=== PATIENT | male | born 1945 | race Asian ===

== ENCOUNTER → 2016-10-20 | Outpatient (CLI) | payer MEDICARE, OTHER ==
[~2016-10-20] MED LIST: AMLO-512 PO; CARV6 PO; CEPH250 PO; DIGO125T PO; ENAL5TAB PO; FURO20 PO; LISI-660 PO; MECL-111 PO; POTA8TAB4 PO; WARF2 PO
[2016-10-20 12:56] LABS: BASOPHILS # (AUTO) 0.04 K/uL (0.00-0.20); BASOPHILS % (AUTO) 0.5 % (0.0-2.0); EOSINOPHILS # (AUTO) 0.11 K/uL (0.00-0.70); EOSINOPHILS % (AUTO) 1.44 % (1.0-6.0); HEMOGLOBIN 14.4 g/dL (13.5-17.5); LYMPHOCYTES # (AUTO) 1.6 K/uL (1.0-4.8); LYMPHOCYTES % (AUTO) 20.1 % (22.0-44.0); MEAN CORPUSCULAR HEMOGLOBIN 29.7 pg (26.0-34.0); MEAN CORPUSCULAR HGB CONC 32.8 G/dL (31.0-37.0); MEAN CORPUSCULAR VOLUME 90 fL (80-100); MONOCYTES # (AUTO) 0.6 K/uL (0.1-1.0); MONOCYTES % (AUTO) 8.1 % (2.0-9.0); NEUTROPHILS # (AUTO) 5.4 K/uL (1.8-7.7); NEUTROPHILS % (AUTO) 69.9 % (40.0-70.0); PLATELET COUNT (AUTO) 190 K/uL (150-450); RED BLOOD CELL COUNT(AUTO) 4.87 MIL/uL (4.50-5.90); WHITE BLOOD COUNT (AUTO) 7.8 K/uL (4.5-11.0)
[2016-10-20 13:27] LABS: ALBUMIN 3.9 g/dL (3.4-5.0); CALCIUM, TOTAL 8.9 mg/dL (8.8-10.5); CHOL/HDL RATIO 2.1 (4.2-7.3); CREATININE 1.38 mg/dL (0.60-1.30); MAGNESIUM 2.3 mg/dL (1.80-2.40); POTASSIUM 4.5 mmol/L (3.5-5.1); THYROID STIMULATING HORMONE 1.54 uIU/mL (0.36-3.74); TOTAL PROTEIN, SERUM 7.7 g/dL (6.4-8.2)
[2016-10-20 13:32] LABS: HEMOGLOBIN A1C 6.1 % (4.5-6.2)
== END | disposition home or self-care (01) ==
LOC: LABPV 10:52
PROVIDERS: ATTEND Internal Medicine Cardiovascular Disease
DX: I11.0 Hypertensive heart disease with heart failure (principal); I50.9 Heart failure, unspecified; E11.8 Type 2 diabetes mellitus with unspecified complications; E55.9 Vitamin D deficiency, unspecified
CPT/HCPCS: 82306; 83036; 83735; 84439; 84443

== ENCOUNTER → 2017-01-20 | Outpatient (CLI) | payer MEDICARE, OTHER ==
[~2017-01-20] VITALS: Ht 170.2 cm; Wt 55.0 kg
[2017-01-20 10:19] VITALS: BP 133/55
== END | disposition home or self-care (01) ==
LOC: SRCNTR 10:14
PROVIDERS: ATTEND Internal Medicine Clinical Cardiac Electrophysiology
DX: Z45.02 Encounter for adjustment and management of automatic implantable cardiac defibrillator (principal); I11.0 Hypertensive heart disease with heart failure; I50.9 Heart failure, unspecified; J44.9 Chronic obstructive pulmonary disease, unspecified; E78.5 Hyperlipidemia, unspecified; Z79.01 Long term (current) use of anticoagulants; Z87.891 Personal history of nicotine dependence
CPT/HCPCS: G0463

== ENCOUNTER → 2017-09-23 | Outpatient (CLI) | payer MEDICARE, OTHER ==
[~2017-09-23] MED LIST changes: -AMLO-512 PO; -CEPH250 PO; -DIGO125T PO; -ENAL5TAB PO; -MECL-111 PO
[2017-09-23 09:59] LABS: BASOPHILS % (AUTO) 0.6 % (0.0-2.0); EOSINOPHILS % (AUTO) 2.5 % (1.0-6.0); HEMATOCRIT 43.3 % (41-53); HEMOGLOBIN 14.4 g/dL (13.5-17.5); LYMPHOCYTES # (AUTO) 1.4 K/uL (1.0-4.8); LYMPHOCYTES % (AUTO) 19.3 % (22.0-44.0); MEAN CORPUSCULAR HEMOGLOBIN 30.6 pg (26.0-34.0); MEAN CORPUSCULAR HGB CONC 33.2 G/dL (31.0-37.0); MEAN CORPUSCULAR VOLUME 92 fL (80-100); MONOCYTES # (AUTO) 0.7 K/uL (0.1-1.0); MONOCYTES % (AUTO) 10.6 % (2.0-9.0); NEUTROPHILS # (AUTO) 4.7 K/uL (1.8-7.7); PLATELET COUNT (AUTO) 166 K/uL (150-450); RED BLOOD CELL COUNT(AUTO) 4.71 MIL/uL (4.50-5.90); RED CELL DISTRIBUTION WIDTH 14.4 % (11.5-14.5)
[2017-09-23 10:15] LABS: HEMOGLOBIN A1C 6.1 % (4.5-6.2)
[2017-09-23 10:22] LABS: ALBUMIN 3.7 g/dL (3.4-5.0); BILIRUBIN,TOTAL 0.9 mg/dL (0.1-1.0); CALCIUM, TOTAL 8.6 mg/dL (8.8-10.5); CHOL/HDL RATIO 2.6 (4.2-7.3); CREATININE 1.24 mg/dL (0.60-1.30); MAGNESIUM 1.9 mg/dL (1.80-2.40); POTASSIUM 4.2 mmol/L (3.5-5.1); THYROID STIMULATING HORMONE 1.59 uIU/mL (0.36-3.74); TOTAL PROTEIN, SERUM 7.2 g/dL (6.4-8.2)
== END | disposition home or self-care (01) ==
LOC: LABPV 08:33
PROVIDERS: ATTEND Internal Medicine Cardiovascular Disease
DX: I11.0 Hypertensive heart disease with heart failure (principal); I50.9 Heart failure, unspecified; E11.8 Type 2 diabetes mellitus with unspecified complications; E55.9 Vitamin D deficiency, unspecified
CPT/HCPCS: 82306; 83036; 83735; 84439; 84443

== ENCOUNTER → 2018-01-22 | Outpatient (CLI) | payer MEDICARE, OTHER ==
[2018-01-22 11:30] LABS: INR 2.7 (0.9-1.1); PROTHROMBIN TIME 27.5 SEC (9.4-11.6)
== END | disposition home or self-care (01) ==
LOC: LABPV 10:11
PROVIDERS: ATTEND Internal Medicine Cardiovascular Disease
DX: I11.0 Hypertensive heart disease with heart failure (principal); I50.9 Heart failure, unspecified

== ENCOUNTER 2019-04-29 21:20 | Emergency (ER) | payer MEDICARE, OTHER ==
[~2019-04-29] VITALS: Ht 162.6 cm; Wt 54.0 kg
[~2019-04-29 21:20] MED LIST changes: +NALOXONE HCL 1 MG/ML 2 ML SYG IM ONE
[2019-04-29] MEDS ORDERED: SUCCINYLCHOLINE CHLORIDE 20 MG/ML 10 ML VIAL IVP ONE ×2 (21:22→22:30)
[2019-04-29] MEDS ORDERED: ETOMIDATE 2 MG/ML 10 ML VIAL IVP ONE ×2 (21:22→22:30)
[2019-04-29] MEDS ORDERED: NALOXONE HCL 1 MG/ML 2 ML SYG ONE (21:22)
[2019-04-29] MEDS ORDERED: NALOXONE HCL 1 MG/ML 2 ML SYG IVP ONE (21:30)
[2019-04-29] MEDS ORDERED: ALBUTEROL SULFATE 5 MG/ML 20 ML NEB SOLN [BULK] NEB ONE ×3 (22:15→23:45)
[2019-04-29] MEDS ORDERED: SODIUM CHLORIDE 0.9% 1,000 ML IV ONE (22:15)
[2019-04-29] MEDS ORDERED: IPRATROPIUM BROMIDE 0.5 MG/2.5 ML NEB SOLUTION NEB ONE ×3 (22:15→23:45)
[2019-04-29] MEDS ORDERED: 0.9% SODIUM CHLORIDE 5 ML NEB SOLUTION NEB ONE ×3 (22:17→23:37)
[2019-04-29] MEDS ORDERED: PHENYLEPHRINE 200 MG/D5%-WATER 250 ML IV PRN (22:25)
[2019-04-29 22:27] LABS: APPEARANCE,URINE CLOUDY (CLEAR); BILIRUBIN,URINE NEGATIVE (NEGATIVE); GLUCOSE, URINE (UA) NEGATIVE (NEGATIVE); KETONES,URINE NEGATIVE (NEGATIVE); LEUKOCYTE ESTERASE ,URINE SMALL (NEGATIVE); NITRATE,URINE NEGATIVE (NEGATIVE); OCCULT BLOOD,URINE MODERATE (NEGATIVE); PROTEIN,URINE TRACE (NEGATIVE)
[2019-04-29 22:29] LABS: HEMATOCRIT 23.8 % (41-53); HEMOGLOBIN 7.6 g/dL (13.5-17.5); MEAN CORPUSCULAR HEMOGLOBIN 30.4 pg (26.0-34.0); MEAN CORPUSCULAR HGB CONC 31.9 G/dL (31.0-37.0); MEAN CORPUSCULAR VOLUME 95 fL (80-100); PLATELET COUNT (AUTO) 215 K/uL (150-450); RED CELL DISTRIBUTION WIDTH 18.1 % (11.5-14.5)
[2019-04-29 22:30] LABS: CALCIUM, TOTAL 8.6 mg/dL (8.8-10.5); CREATININE 2.23 mg/dL (0.60-1.30); POTASSIUM 5.8 mmol/L (3.5-5.1)
[2019-04-29] MEDS ORDERED: SODIUM CHLORIDE 0.9% 500 ML IV ONE (22:30)
[2019-04-29] MEDS ORDERED: DEXTROSE 50%-WATER 25 GM/50 ML SYRINGE IVP PRN (22:30)
[2019-04-29] MEDS ORDERED: ALBUTEROL SULFATE 2.5 MG/0.5 ML NEB SOLUTION NEB SCH (22:30)
[2019-04-29] MEDS ORDERED: IPRATROPIUM BROMIDE 0.5 MG/2.5 ML NEB SOLUTION NEB SCH (22:30)
[2019-04-29] MEDS ORDERED: ONDANSETRON HCL 4 MG/2 ML VIAL IVP PRN (22:30)
[2019-04-29] MEDS ORDERED: INSULIN REGULAR, HUMAN 100 UNITS/ML SQ PRN (22:30)
[2019-04-29] MEDS ORDERED: MAGNESIUM HYDROXIDE SUSPENSION 30 ML UDCUP PO PRN (22:30)
[2019-04-29] MEDS ORDERED: BISACODYL 10 MG RECTAL RECTAL SUPPOSITORY PR PRN (22:30)
[2019-04-29 22:36] LABS: RBC,URINE 0-2 /HPF (0-2)
[2019-04-29 22:37] LABS: ALBUMIN 2.1 g/dL (3.4-5.0); BACTERIA,URINE Moderate /HPF (None Seen); TOTAL PROTEIN, SERUM 6.2 g/dL (6.4-8.2); YEAST,URINE Moderate /HPF (None Seen)
[2019-04-29 22:38] LABS: AMORPHOUS SEDIMENT,UR Moderate /LPF (None Seen); SQUAMOUS EPITHELIAL CELL,UR Few /LPF (None Seen); TROPONIN I 0.41 ng/mL (0.00-0.05)
[2019-04-29] MEDS ORDERED: HEPARIN SODIUM,PORCINE 5,000 UNITS/ML VIAL SQ SCH (22:49)
[2019-04-29 22:56] LABS: LACTIC ACID 1.6 mmol/L (0.4-2.0)
[2019-04-29 22:59] LABS: INR 3.4 (0.9-1.1); PROTHROMBIN TIME 33.6 SEC (9.4-11.6)
[2019-04-29 23:11] LABS: BAND NEUTROPHILS % (MANUAL) 17 % (0-5); CORRECTED WHITE BLOOD COUNT 7.9 K/uL (4.5-11.0); LYMPHOCYTES % (MANUAL) 4 % (22-44); MONOCYTES % (MANUAL) 12 % (2-9); SEGMENTED NEUTROPHILS % 67 % (40-70)
[2019-04-29 23:12] LABS: ABG A-A DIFF O2 585.9 mmHg (10-20.0); ABG BASE EXCESS 5.2 mmol/L (-2.0-3.0); ABG CARBOXYHEMOGLOBIN 0.6 % (0.0-1.5); ABG HCO3 28.5 mmol/L (22.0-26.0); ABG METHEMOGLOBIN 0.3 % (0.0-1.5); ABG OXYGEN CONTENT 10.3 mL/dL (15.0-23.0); ABG OXYGEN SATURATION 94.7 % (95.0-98.0); ABG OXYHEMOGLOBIN 93.8 % (94.0-100.0); ABG PCO2 52 mmHg (35-45); ABG PH 7.381 (7.35-7.450); ABG TOTAL HEMOGLOBIN 7.7 G/dL (12.0-18.0); O2 DEVICE,BLOOD GAS VENTILATOR (ROOM AIR); PEEP,BG 5 cm H2O; PO2, ARTERIAL BG 76.2 mmHg (75.0-83.0); SITE, BLOOD GAS RT RADIAL; SOURCE, BLOOD GAS ARTERIAL; TEMPERATURE, FAHRENHEIT, BG 97.7 FAHREN (96.0-98.6); VT, ABG 500 ml
[2019-04-29] MEDS ORDERED: CefTRIAXone SODIUM 2 GM in DEXTROSE 5%-WATER 50 ML IV ONE (23:15)
[2019-04-29] MEDS ORDERED: ARFO15VI2 IH (23:34)
[2019-04-29] MEDS ORDERED: DOCU250C91 PO (23:34)
[2019-04-29] MEDS ORDERED: IPRA3AMP24 NEB (23:34)
[2019-04-29] MEDS ORDERED: ACET1TAB12 PO (23:34)
[2019-04-29] MEDS ORDERED: WARF1 PO (23:34)
[2019-04-29] MEDS ORDERED: SLOWK8 PO (23:34)
[2019-04-29] MEDS ORDERED: FAMO20 PO (23:34)
[2019-04-29] MEDS ORDERED: DSS100 PO (23:34)
[2019-04-29] MEDS ORDERED: BUME1TAB34 PO (23:34)
[2019-04-29] MEDS ORDERED: CALC25 PO (23:34)
[2019-04-29] MEDS ORDERED: LACT30L PO (23:34)
[2019-04-29] MEDS ORDERED: ACETAMINOPHEN 650 MG/ISO-OSM 65 ML IV ONE (23:45)
[2019-04-30] MEDS ORDERED: PROPOFOL 1000 MG/ISO-OSM 100 ML IV PRN ×2 (00:41→01:09)
[2019-04-30] MEDS ORDERED: LORazepam 2 MG/ML VIAL IVP PRN (00:45)
[2019-04-30] MEDS ORDERED: MORPHINE SULFATE 2 MG/ML SYRINGE IVP PRN (00:45)
[2019-04-30] MEDS ORDERED: PIPERACILLIN/TAZO 3.375 GM/D5W 50 ML IV ONE (00:45)
[2019-04-30] MEDS ORDERED: LORazepam 2 MG/ML VIAL IVP ONE ×2 (02:00→03:15)
[2019-04-30] MEDS ORDERED: MORPHINE SULFATE 100 MG/NS/PF 100 ML IV PRN (02:00)
[2019-04-30 03:31] VITALS: BP 57/32
[2019-04-30] MEDS ORDERED: PANTOPRAZOLE SODIUM 40 MG/VIAL IVP SCH (09:00)
== END 2019-04-30 06:39 | disposition expired ==
LOC: EMS 21:21
DX: J96.90 Respiratory failure, unspecified, unspecified whether with hypoxia or hypercapnia (principal); G93.40 Encephalopathy, unspecified; N39.0 Urinary tract infection, site not specified; I48.92 Unspecified atrial flutter; I11.0 Hypertensive heart disease with heart failure; I50.9 Heart failure, unspecified; N19 Unspecified kidney failure; K72.90 Hepatic failure, unspecified without coma; E78.00 Pure hypercholesterolemia, unspecified; G47.30 Sleep apnea, unspecified; I48.91 Unspecified atrial fibrillation; J44.9 Chronic obstructive pulmonary disease, unspecified; Z95.1 Presence of aortocoronary bypass graft; Z87.891 Personal history of nicotine dependence; Z79.899 Other long term (current) drug therapy
CPT/HCPCS: 31500; 36415; 36600; 70450; 71045; 71250; 80053; 81001; 82140; 82550; 82805; 83605; 83690; 83880; 84484; 85025; 85610; 85730; 87040; 87077; 87086; 87186; 87205; 93005; 94644; 96365; 96366 ×2; 96367; 96368; 96372; 96375; 96376; 99291; J0131; J0330; J0696; J2060; J2270; J2310; J2370; J2704; J3490; J7040; J7060; 94002